=== PATIENT | male | born 1990 | race African-American/Black ===

== ENCOUNTER 2020-10-06 21:30 | Emergency (ER) | payer OTHER ==
[2020-10-06] MEDS ORDERED: LIDOCAINE 1%/EPINEPHRINE INJ 20 ML VIAL INJ ONE (21:51)
[2020-10-06] MEDS ORDERED: DIPH/PERTUSS(ACELL)/TETANUS VAC/PF 0.5 ML SYR (>=10YO) IM ONE (21:51)
--- NOTE | 2020-10-06 21:53 | ER Document Report ---
ED Medical Screen (RME) - General Chief Complaint: Laceration Stated Complaint: GASH TO THE FACE Time Seen by Provider: 10/06/20 21:49 Mode of Arrival: Ambulatory Information source: Patient - HPI Patient complains to provider of: left facial laceration Notes: 10/06/20 21:52 Patient with complaints of laceration to the left cheek. The patient was at a trampoline park with his son. His son did a flip and excellently kicked him in the face. No loss of consciousness. No blood thinning medications. No severe headache. No blurred or loss of vision. Unsure of his last tetanus. No numbness, tingling, weakness. No other injury. Exam: No distress, nontoxic appearing. No respiratory distress. Laceration noted to the left maxillary area. No active bleeding. No significant depression or crepitus to palpation. Extraocular cells are intact bilaterally. Pupils equal round react to light bilaterally. No focal neuro deficits. An initial examination was made on the patient as part of the triage process, and it was determined a more comprehensive evaluation was necessary. Initial orders were placed and patient was transferred to another provider in the ED who assumed care and finished evaluation and plan. - Related Data Allergies/Adverse Reactions: No Known Allergies Allergy (Unverified 10/06/20 21:52) Past Medical History - Social History Chew tobacco use (# tins/day): No Drug Abuse: None Physical Exam - Vital signs Vitals: Temp Pulse Resp BP Pulse Ox 98.6 F 90 16 137/91 H 98 10/06/20 21:37 10/06/20 21:37 10/06/20 21:37 10/06/20 21:37 10/06/20 21:37 Course - Vital Signs Vital signs: Temp Pulse Resp BP Pulse Ox 98.6 F 90 16 137/91 H 98 10/06/20 21:50 10/06/20 21:37 10/06/20 21:37 10/06/20 21:37 10/06/20 21:37
[2020-10-07] MEDS ORDERED: LIDOCAINE 1%/EPINEPHRINE INJ 20 ML VIAL INJ ONE ×2 (01:37→01:45)
[2020-10-07] MEDS ORDERED: DIPH/PERTUSS(ACELL)/TETANUS VAC/PF 0.5 ML SYR (>=10YO) IM ONE (01:45)
--- NOTE | 2020-10-07 02:35 | ER Document Report ---
HPI - HPI Time Seen by Provider: 10/06/20 21:49 Pain Level: 3 Context: Patient is a 29-year-old male that comes to the emergency department for chief complaint of laceration to the left cheek underneath the left eye. Patient states that he was at a trampoline park, he states his son performed a flip and when he did so accidentally struck his father in the face. This caused laceration with bleeding but dad denies headache, vomiting, passing out, neck pain, focal numbness or weakness, or any other complaints. He is not on blood thinner. Tetanus is not up-to-date. - REPRODUCTIVE Reproductive: DENIES: : Past Medical History - General Information source: Patient - Social History Smoking Status: Never Smoker Chew tobacco use (# tins/day): No Drug Abuse: None Lives with: Family Family History: Reviewed & Not Pertinent Patient has homicidal ideation: No Surgical Hx: Negative - Immunizations Immunizations up to date: No Hx Diphtheria, Pertussis, Tetanus Vaccination: Yes Vertical Provider Document - CONSTITUTIONAL General Appearance: WD/WN, No Apparent Distress - HEENT HEENT: Atraumatic, Normal ENT Exam, Normocephalic, PERRLA. negative: Conjuctival Injection, Dental Injury, Pharyngeal Tenderness, Pharyngeal Erythema - NECK Neck: Normal Inspection - RESPIRATORY Respiratory: Breath Sounds Normal, No Respiratory Distress - CARDIOVASCULAR Cardiovascular: Regular Rate, Regular Rhythm - GI/ABDOMEN Gastrointestinal: Abdomen Soft, Abdomen Non-Tender - BACK Back: Normal Inspection - MUSCULOSKELETAL/EXTREMETIES Musculoskeletal/Extremeties: MAEW, FROM, Non-Tender - NEURO Level of Consciousness: Awake, Alert, Appropriate - DERM Integumentary: Warm, Dry, Laceration - There is a 2.5 cm linear horizontal laceration over the left mid zygomatic area. This does not include the eyelid. Partial-thickness. No other injuries noted. Course - Re-evaluation Re-evalutation: Patient with partial-thickness laceration over the left zygomatic area but no involvement of the eye, mouth, or signs of trauma otherwise. No neurological symptoms, normal neurologic exam, no signs of injuries otherwise. Patient asymptomatic. Tetanus updated, wound cleaned and repaired, discussed care, follow-up, return precautions. Patient states understanding and agreement. - Vital Signs Vital signs: Temp Pulse Resp BP Pulse Ox 98.6 F 90 16 137/91 H 98 10/06/20 21:50 10/06/20 21:37 10/06/20 21:37 10/06/20 21:37 10/06/20 21:37 - Laboratory Results Critical Laboratory Results Reviewed: No Critical Results - Radiology Results Critical Radiology Results Reviewed: No Critical Results Procedures - Laceration/Wound Repair Left cheek/face Wound length (cm): 2.5 Wound's Depth, Shape: Linear Laceration pre-procedure: Sterile PPE donned, Sterile drapes applied, Shur-Clens applied Anesthetic type: 1% Lidocaine w/epi Volume Anesthetic (mLs): 2 Wound explored: Clean, No foreign body removed Wound Repaired With: Sutures Suture Size/Type: 6:0, Prolene Number of Sutures: 4 Layer Closure?: No Post-procedure NV exam normal: Yes Complications: No Discharge - Discharge Clinical Impression: Facial laceration Qualifiers: Encounter type: initial encounter Qualified Code(s): S01.81XA - Laceration without foreign body of other part of head, initial encounter Condition: Stable Disposition: HOME, SELF-CARE Additional Instructions: The wound was repaired with sutures. Keep clean, clean with soap and water, dab dry, avoid soaking or scrubbing. You can apply thin film of topical antibiotic. Sutures need to be removed in about 7 days at a medical facility. Return sooner for any concerning symptoms including signs of infection such as developing pain, swelling, redness, discolored discharge, fever, or any other concerning symptoms.
[2020-10-07 03:05] VITALS: BP 163/90
== END 2020-10-07 03:09 | disposition home or self-care (01) ==
LOC: ER 21:30
DX: S01.412A Laceration without foreign body of left cheek and temporomandibular area, initial encounter (principal); W50.0XXA Accidental hit or strike by another person, initial encounter; Y93.44 Activity, trampolining; Y92.89 Other specified places as the place of occurrence of the external cause; Z23 Encounter for immunization
CPT/HCPCS: 99283; 90471; 90715; 12011; J3490